=== PATIENT | male | born 1965 | race Caucasian/White ===

== ENCOUNTER 2016-09-25 10:15 | Inpatient (IN) | payer OTHER ==
[~2016-09-25] VITALS: Ht 182.9 cm; Wt 73.2 kg
--- NOTE | ~2016-09-25 | FD ---
ADMIT: 09/25/2016 RM/LOC: 506 [facility] MR#: [id number] [address] [address] ABHISHEK GASTON [address] [place] [address] Final Diagnosis SEX: M AGE: 51 : 1965 ADMISSION DATE: 09/25/2016 DISCHARGE DATE: 09/26/2016 FINAL DIAGNOSES: 1. Fluid overload. 2. End-stage renal disease. 3. Hypertension. 4. Hyponatremia. 5. Diabetes. 6. Pneumonia. Willem Hernández DO/ modl JOB #: [id number] CC: Willem Hernández DO, Attending Physician Willem Hernández DO, Family Physician
[2016-09-28] MEDS ORDERED: VASOTEC20 MG PO (12:15)
[2016-09-28] MEDS ORDERED: ECOTRIN81 MG PO (12:15)
[2016-09-28] MEDS ORDERED: LOPRESSOR DPS50 MG PO (12:15)
[2016-09-28] MEDS ORDERED: LASIX DPS80 MG PO (12:15)
[2016-09-28] MEDS ORDERED: DUONEB DPS3 ML IH (12:16)
[2016-09-28] MEDS ORDERED: NOVOLIN N100 UNIT/1 SQ (12:16)
[2016-09-28] MEDS ORDERED: NOVOLIN R SQ (12:17)
[2016-09-28] MEDS ORDERED: [UNRECOGNIZED DRUG - OTHER] SQ (12:17)
[2016-09-28] MEDS ORDERED: ZITHROMAX250 MG PO (12:18)
[2016-09-28] MEDS ORDERED: NOVOLOG100 UNIT/2 SQ (12:18)
--- NOTE | 2016-09-30 16:04 | ER ---
ADMIT: 09/25/2016 RM/LOC: ER [facility] MR#: [id number] [address] [address] ABHISHEK GASTON [address] [place] [address] Emergency Room Report SEX: M AGE: 51 : 1965 DATE: 09/25/2016 ADDENDUM: This 51-year-old white male coming in with a little bit of cough and swelling. He is sent over from dialysis. He is unable to tolerate outpatient dialysis over there. We think it has something to do with bilateral pneumonia he has. He is not septic, however. His white count is normal. His lactate is 0.8, glucose is 515, creatinine is 9.3. Troponin is negative. EKG is negative. At this time, I spoke with Dr. Hernández and Dr. Westbrook. Dr. Hernández will admit for pneumonia. He is a rule out sepsis, so his pressure and his lactate have been fine. He is a hard stick, so they will have to consider how we are also going to treat this. I spoke with Dr. Westbrook about his hyponatremia and the need for dialysis, he was so advised and understands. CONDITION DISCHARGE: Serious but stable. Dino Galvez MD/ modl JOB #: [id number] CC: Dino Galvez MD, Attending Physician [facility], Family Physician
--- NOTE | 2016-10-01 08:20 | HP ---
ADMIT: 09/25/2016 RM/LOC: 506 [facility] MR#: [id number] [address] [id number] ABHISHEK GASTON [address] [place] [address] History and Physical SEX: M AGE: 51 : 1965 DATE OF SERVICE: REASON FOR HOSPITALIZATION: Fluid overload and pneumonia. HISTORY OF PRESENT ILLNESS: A 51-year-old, male patient with end-stage renal disease, hypertension, diabetes, and he is a smoker. He was having some chest congestion and went to his primary doctor on Thursday instead of going to hemodialysis. There, he started on Zithromax for what was felt to be a pneumonia. In light of missing dialysis, he then became fluid overloaded and presented to [facility] today where we are admitting him for further dialysis management and ongoing antibiotic. At this time, he refuses further access attempts for IV therapy. He is on dialysis currently and comfortable and doing well. He is not short of breath. He is not having any current sputum production but does report a cough with chest congestion. His review of systems is otherwise negative. He is not having any chest pain. Denies any edema. His medical history does consist of prior peritoneal dialysis and in June transitioned to hemodialysis. He is a smoker. Again, has a history of hypertension and diabetes. MEDICATIONS: Include: 1. Amlodipine. 2. Enalapril. 3. Metoprolol. 4. Furosemide. 5. Carbamazepine. 6. Zithromax. 7. Aspirin. 8. Tums. 9. Ferrous sulfate. 10.Vitamin C. 11.Novolin insulin. 12.Ventolin. PHYSICAL EXAMINATION: GENERAL: He is pleasant. 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 LUNGS: Wheezing posteriorly, faint in nature. HEART: Regular. ABDOMEN: Soft. No peripheral edema. His white count is 10.3. His sodium is 124. His blood sugars 515. Chest x- ADMIT: 09/25/2016 RM/LOC: 506 [facility] MR#: [id number] [address] [place] [id number] ABHISHEK GASTON [address] [place] [address] History and Physical SEX: M AGE: 51 : 1965 ray bilateral opacities. Pneumonia versus fluid. IMPRESSION: 1. Pneumonia. 2. Diabetes mellitus. 3. Hyponatremia. 4. Fluid overload. 5. End-stage renal disease. PLAN: Admit nebulized treatments. Continue Zithromax. Hemodialysis per Dr. Westbrook consultation. Monitor his blood sugars and provide sliding scale insulin therapy. Willem Hernández DO/ modl JOB #: [id number] CC: Willem Hernández, Attending Physician Willem Hernández, Family Physician
--- NOTE | 2016-10-02 12:41 | CO ---
ADMIT: 09/25/2016 RM/LOC: 506 [facility] MR#: [id number] [address] [address] ALEK ABHISHEK Marco [address] [place] [address] Consultation SEX: M AGE: 51 : 1965 DATE OF CONSULTATION: 09/25/2016 ATTENDING PHYSICIAN: Willem Hernández CONSULTING PHYSICIAN: Arti Westbrook MD REASON FOR CONSULTATION: End-stage renal disease, on hemodialysis, volume overload. HISTORY OF PRESENT ILLNESS: The patient is a 51-year-old gentleman, who has a history of end-stage renal disease, for which he is on hemodialysis. He was previously on peritoneal dialysis and had peritonitis in April 2016. Following this, he was with switched to in-center hemodialysis. He was sent over through the emergency room here by his dialysis unit at [facility] because of concerns of volume overload. He reports that he has been having shortness of breath for quite a few months now. He typically dialyzes on Thursday, Thursday, Thursday schedule and skipped his dialysis this Thursday because he had to see his physician in [place]. Since Thursday of last week, he has gained upwards of 15 pounds according to his report. His home dialysis unit tried to dialyze him yesterday but was not able to take much fluid up because of cramps. He reports having dyspnea on exertion as well as orthopnea. He does not have fever, and has been on antibiotics, i.e., azithromycin for the last 3 days because of the concern of pneumonia. He has also been on steroids and albuterol puffer. He has increased fluid intake, almost up to 60 ounces a day. He still makes urine and is on a diuretic. He runs about 4 hours at his dialysis unit. REVIEW OF SYSTEMS: Review of systems is negative in detail except as mentioned in the history of present illness above. PAST MEDICAL HISTORY: 1. Hypertension. 2. Diabetes mellitus. 3. End-stage renal disease, on hemodialysis. 4. Epilepsy. 5. defect involving the right side of his body including upper limb and the chest. ALLERGIES: NO KNOWN DRUG ALLERGIES. SOCIAL HISTORY: Lives in [place] with his . Smokes about a pack of cigarettes a day. No alcohol or recreational drug use. FAMILY HISTORY: No family history of chronic kidney disease or renal replacement therapy. PHYSICAL EXAMINATION: VITAL SIGNS: Blood pressure 142/76, pulse rate is 76. GENERAL: He is sitting comfortably in a chair and is on dialysis. HEENT: Head is nontraumatic and normocephalic. Extraocular movements are ADMIT: 09/25/2016 RM/LOC: 506 [facility] MR#: [id number] [address] [address] ABHISHEK GASTON [address] [place] [address] Consultation SEX: M AGE: 51 : 1965 intact. No conjunctival pallor. Oral mucosa is moist. CHEST: Clear to auscultation. CVS: Rhythm S1, S2. No rubs. ABDOMEN: Soft and nontender. EXTREMITIES: No edema. Access is a tunneled dialysis catheter. He also has an AV fistula in his left forearm with good thrill and bruit. MUSCULOSKELETAL: He has defect of his right upper arm. NEUROLOGIC: Alert, awake, and oriented x3. LABORATORY DATA: Reviewed. His BUN was 106, creatinine 9.3. Albumin 3.3. His hemoglobin was 11.3 with sodium of 124, potassium 4.7. ASSESSMENT: 1. End-stage renal disease, on hemodialysis. 2. Volume expansion/overload along with dyspnea. 3. Azotemia. 4. Hyponatremia secondary to increased fluid intake. 5. Anemia on chronic kidney disease. PLAN: His dyspnea is likely multifactorial and he does have signs and symptoms of volume overload. He is on dialysis now, and we are aiming for a net ultrafiltration of around 3 to 3.5 kilos. I discussed frequent hemodialysis with him while he is inpatient and we will dialyze him on a daily basis if he is agreeable. He needs to limit his fluid intake and that is likely contributing to his hyponatremia as well. His hemoglobin is acceptable and does not need an NOE at this time. His blood pressure is acceptable and they will provide him ultrafiltration as his hemodynamics allow. Thank you for this consultation. Please do not hesitate to contact me any questions. Arti Westbrook MD/ raphael JOB #: [id number] CC: Willem Hernández, Attending Physician Willem Hernández, Family Physician
== END 2016-09-26 13:35 | disposition left against medical advice (07) | DRG 193 ==
LOC: ER 10:15 → 5MS 13:08
PROVIDERS: ADMIT Internal Medicine
PROC: 5A1D00Z (ICD-10-PCS; principal; 2016-09-25)
DX: J18.9 Pneumonia, unspecified organism (principal); N18.6 End stage renal disease; I12.0 Hypertensive chronic kidney disease with stage 5 chronic kidney disease or end stage renal disease; E11.22 Type 2 diabetes mellitus with diabetic chronic kidney disease; E87.1 Hypo-osmolality and hyponatremia; E87.70 Fluid overload, unspecified; Z99.2 Dependence on renal dialysis; D63.1 Anemia in chronic kidney disease; Q74.0 Other congenital malformations of upper limb(s), including shoulder girdle; G40.909 Epilepsy, unspecified, not intractable, without status epilepticus; F17.210 Nicotine dependence, cigarettes, uncomplicated; Z79.82 Long term (current) use of aspirin; Z79.4 Long term (current) use of insulin; Z91.15 Patient's noncompliance with renal dialysis

== ENCOUNTER → 2016-10-28 | Outpatient (CLI) | payer SELFPAY ==
[~2016-10-28] MED LIST: DUONEB DPS3 ML IH; ECOTRIN81 MG PO; LASIX DPS80 MG PO; LOPRESSOR DPS50 MG PO; NOVOLIN N100 UNIT/1 SQ; NOVOLIN R SQ; NOVOLOG100 UNIT/2 SQ; VASOTEC20 MG PO; ZITHROMAX250 MG PO; [UNRECOGNIZED DRUG - OTHER] SQ
== END | disposition home or self-care (01) ==
LOC: RAD.S 10:33
PROC: 05PY33Z Removal of Infusion Device from Upper Vein, Percutaneous Approach (ICD-10-PCS; principal; 2016-10-28)
DX: Z45.2 Encounter for adjustment and management of vascular access device (principal)